=== PATIENT | male | born 1960 | race Caucasian/White ===

== ENCOUNTER 2017-07-15 08:10 | Emergency (ER) | payer OTHER ==
[~2017-07-15] VITALS: Ht 177.8 cm; Wt 85.0 kg
[2017-07-15 08:11] VITALS: Ht 177.8 cm; Wt 85.0 kg
[2017-07-15] MEDS ORDERED: METOCLOPRAMIDE HCL INJ 5 MG/ML 2 ML VIAL IV STA (08:22)
[2017-07-15] MEDS ORDERED: NITROGLYCERIN 2% OINTMENT 30GM TUBE EXT STA (08:22)
[2017-07-15] MEDS ORDERED: GLUCAGON INJ 1 MG in SYRINGE 0 ML IV STA (08:22)
[2017-07-15] MEDS ORDERED: DIAZEPAM INJ 5 MG/ML 2 ML CARP IV STA (08:22)
--- NOTE | 2017-07-15 08:24 | EMERGENCY ROOM VISIT NOTE ---
History Report prepared by Jes: Silvestre Maradiaga Under the Supervision of: Dr. Herrera Sandoval M.D. First contact with patient: 08:18 Chief Complaint: FOOD BOLUS Stated Complaint: FOOD CAUGHT IN THROAT Nursing Triage Summary: Patient states "Last night around 8 pm, I was eating a hot dog and part of it is stuck in my throat. It has happened before. It has happened a few times over the last year but I have not gotten check out. I am able to swallow some spit but not much." History of Present Illness The patient is a 57 year old male with a history of food boluses who presents to the Emergency Room with complaints of a persistent food bolus that started 12 hours ago. He states that he was eating last night and the food got stuck in his throat. The patient says that in the past, the food bolus would eventually go away, but this current food bolus will not go away. He adds that he thinks some of the food is getting past, but he is still regurgitating water and a bit of saliva. He denies any abdominal pain. The patient says that he had a colonoscopy in the past but it was in [place]. Source of History: patient Onset: 12 hours ago Position: throat Symptom Intensity: regurgitating water and saliva Quality: other (food bolus) Timing: other (persistent) Associated Symptoms: No abdominal pain Note: No other associated symptoms noted. Review of Systems See HPI for pertinent positives & negatives. A total of 10 systems reviewed and were otherwise negative. Past Medical & Surgical Medical Problems: (1) HTN (hypertension) (2) Problems with swallowing Family History Cancer Hypertension Social History Smoking Status: Former Smoker Drug Use: none Housing Status: lives with family Occupation Status: employed Current/Historical Medications Scheduled Atorvastatin (Lipitor), 10 MG PO DAILY Lisinopril (Lisinopril), 10 MG PO DAILY Allergies Coded Allergies: No Known Allergies (Unverified , 07/15/17) Physical Exam Vital Signs Date Time Temp Pulse Resp B/P (MAP) Pulse Ox O2 Delivery O2 Flow Rate FiO2 07/15/17 11:10 73 18 131/87 97 Room Air 07/15/17 10:18 73 18 133/79 95 Room Air 07/15/17 09:15 90 16 148/97 95 Room Air 07/15/17 08:50 80 07/15/17 08:29 94 Room Air 07/15/17 08:11 36.8 90 18 159/94 96 Room Air 07/15/17 08:11 96 Room Air 96 Physical Exam GENERAL: Awake, alert, well-appearing, in no acute distress HENT: Normocephalic, atraumatic. Oropharynx unremarkable. EYES: Normal conjunctiva. Sclera non-icteric. NECK: Supple. No nuchal rigidity. FROM. No JVD. RESPIRATORY: Clear to auscultation. CARDIAC: Regular rate, normal rhythm. Extremities warm and well perfused. Pulses equal. ABDOMEN: Soft, non-distended. No tenderness to palpation. No rebound or guarding. No masses. RECTAL: Deferred. MUSCULOSKELETAL: Chest examination reveals no tenderness. The back is symmetrical on inspection without obvious abnormality. There is no CVA tenderness to palpation. No joint edema. LOWER EXTREMITIES: Calves are equal size bilaterally and non-tender. No edema. No discoloration. NEURO: Normal sensorium. No sensory or motor deficits noted. SKIN: No rash or jaundice noted. Medical Decision & Procedures Medications Administered Medications (Trade) Dose Ordered Sig/Liz Route Start Time Stop Time Status Last Admin Dose Admin Nitroglycerin (Nitroglycerin 2% Oint) 1 inch NOW STAT EXT 07/15/17 08:22 07/15/17 08:25 DC 07/15/17 08:34 1 INCH Diazepam (Valium Inj) 10 mg NOW STAT IV 07/15/17 08:22 07/15/17 08:25 DC 07/15/17 08:34 10 MG Metoclopramide HCl (Reglan Inj) 10 mg NOW STAT IV 07/15/17 08:22 07/15/17 08:25 DC 07/15/17 08:34 10 MG Glucagon (Glucagon Inj) 1 mg NOW ONCE IV 07/15/17 09:00 07/15/17 09:01 DC 07/15/17 09:13 1 MG ED Course 0819: Past medical records reviewed. The patient was evaluated in room A12B. A complete history and physical examination was performed. 0822: Reglan Inj 10 mg IV, Valium Inj 10 mg IV, Nitroglycerin 2% Oint 1 inch EXT , Glucagon 1mg/Syringe 1 ml @ 0 mls/min IV. 0847: I discussed the patient with Gina Delgado GI. 0900: Glucagon Inj 1 mg IV. 1155: I reevaluated the patient and he is resting. I discussed the test results with him. He will go to the [facility], and he is agreeable with the plan. Medical Decision Differential diagnosis: Food bolus. This is a 57-year-old male who presents emergency department complaining of being unable to swallow his own saliva. An IV was established, the patient was given glucagon, Reglan, Valium. In addition the patient was also given Nitropaste. Repeat examination revealed patient to still be spitting out his own saliva. For this reason I did discuss the case with the on-call survey worker and the patient was taken to the endoscopy lab. Medication Reconcilliation Current Medication List: was personally reviewed by me Blood Pressure Screening Patient's blood pressure: Elevated blood pressure Blood pressure disposition: Elevated BP felt to be situational Consults Time Called: 08 Consulting Physician: Gina HAYES Returned Call: 0847 I discussed the patient with Gina HAYES. Impression Primary Impression: Impacted esophageal foreign body Additional Impression: Dysphagia Scribe Attestation The scribe's documentation has been prepared under my direction and personally reviewed by me in its entirety. I confirm that the note above accurately reflects all work, treatment, procedures, and medical decision making performed by me. Departure Information [facility]postion [facility] Patient Instructions My [facility] Problem Qualifiers Primary Impression: Impacted esophageal foreign body Encounter type: initial encounter Qualified Codes: T18.108A - Unspecified foreign body in esophagus causing other injury, initial encounter Additional Impression: Dysphagia Dysphagia type: unspecified Qualified Codes: R13.10 - Dysphagia, unspecified
[2017-07-15] MEDS ORDERED: GLUCAGON FOR INJ 1 MG VIAL IV ONE (09:00)
--- NOTE | 2017-07-15 09:04 | Gastrointestinal Consultation ---
Gastrointestinal Consultation Date of Consultation: Jul 15, 2017 Attending Physician: Jaime Consulting Physician: Khris Reason for Consultation: food bolus History of Present Illness Patient is a 57 year old male w/ history of HTN and dysphagia who presented to [facility] for inability to tolerate secretions x 12 hours after swallowing a hot dog w/ sensation of food sticking - GI was asked to evaluate the pt for a food bolus as pt was unable to pass despite valium, nitropaste and reglan. Pt was seen and evaluated, chart reviewed. Pt notes history of dysphagia w/ sensation of food sticking for quite some time. Always meats and dry carbohydrates. No issues with liquids. He has not had this evaluated in the past. Most times he can feel the food stick, but this empties spontaneously. He notes he has never had persistent symptoms like this before. Notes intentional weight loss w/ dietary changes and exercise regimen. No fever, chills, CP, SOB, wheezing. He is hypertensive, tachycardiac w/ pulse in 90s EGD: none Colonoscopy: WNL per pt Past Medical/Surgical History dysphagia, inability to tolerate secretions, vomiting, food bolus Past Medical History: HTN, dysphagia Past Surgical History: colonoscopy Family History Cancer Hypertension Social History Smoking Status: Former Smoker Drug Use: none Housing Status: lives with family Occupation Status: employed Allergies Coded Allergies: No Known Allergies (Unverified , 07/15/17) Review of Systems Constitutional: + weight loss, No fever, No chills, No weakness, No fatigue Respiratory: No cough, No shortness of breath, No dyspnea at rest Cardiac: No chest pain, No edema Abdomen: + vomiting, + dysphagia, + problem reported (inability to tolerate secretions), No pain, No nausea, No diarrhea, No constipation, No GI bleeding Skin: No rash, No itch, No bleeding, No jaundice Physical Exam Date Time Temp Pulse Resp B/P (MAP) Pulse Ox O2 Delivery O2 Flow Rate FiO2 07/15/17 08:50 80 07/15/17 08:29 94 Room Air 07/15/17 08:11 36.8 90 18 159/94 96 Room Air 07/15/17 08:11 96 Room Air 96 General Appearance: + mild distress Eyes: PERRL ENT: hearing grossly normal Neck: supple, trachea midline Respiratory/Chest: lungs clear, normal breath sounds, no accessory muscle use Cardiovascular: regular rate, rhythm, no gallop Abdomen: normal bowel sounds, non tender, soft, no organomegaly, no pulsatile mass Neurologic/Psych: alert, normal mood/affect, oriented x 3 Skin: normal color, no jaundice, warm/dry, no rash Impression Patient is a 57 year old male w/ history of HTN, dysphagia who presents in the ED for s/s of food bolus 12 hours after swallowing a hot dog, notes he felt the meat stick when he swallowed and symptoms have persisted since. Unable to pass w / reglan, valium and nitropaste. His respirations are even, unlabored w/o evidence of airway compromise. Plan NPO EGD for food bolus Attg add: I interviewed and examined pt, reviewed chart and labs. Pt with intermittent dysphagia to solids over the past year. He ate a hot dog last night, and has felt like it is lodged in the esophagus, with difficulty clearing his secretions. He received mult meds in ER, but at present, is unsure if food remains lodged in esophagus and he has not spat up saliva for several hours. He has GERD that is well controlled. He denies CP, cough. He is comfortable with clear lungs on exam. No crepitus. Possible food bolus - EGD today.
[2017-07-15] MEDS ORDERED: ATOR10TA82 PO (09:18)
[2017-07-15] MEDS ORDERED: LISI-461 PO (09:18)
[2017-07-15 11:10] VITALS: O2SAT 97
[2017-07-15] MEDS ORDERED: PROPOFOL IV EMULSION 10 MG/ML 20 ML VIAL IV ONE (11:48)
[2017-07-15] MEDS ORDERED: SUCCINYLCHOLINE CHLORIDE 20 MG/ML 10 ML VIAL IV ONE (11:49)
[2017-07-15] MEDS ORDERED: MIDAZOLAM HCL 1 MG/ML 2ML VIAL ONE (11:49)
[2017-07-15] MEDS ORDERED: FENTANYL CITRATE INJ 50 MCG/1 ML 2 ML VIAL ONE ×2 (11:50→13:03)
[2017-07-15] MEDS ORDERED: EpHEDrine SULFATE INJ 50 MG/ML AMP IV PRN (12:00)
[2017-07-15] MEDS ORDERED: ATROPINE SULFATE 0.1 MG/ML 5ML SYR IV PRN (12:00)
[2017-07-15] MEDS ORDERED: FENTANYL CITRATE INJ 50 MCG/1 ML 2 ML VIAL IV PRN (12:00)
--- NOTE | 2017-07-15 13:15 | GI REPORT ---
Procedure Date: 07/15/2017 11:41 AM Procedure: Upper GI endoscopy Indications: Foreign body in the esophagus Medicines: See the Anesthesia note for documentation of the administered medications Complications: No immediate complications. Estimated Blood Loss: Estimated blood loss: none. Procedure: Pre-Anesthesia Assessment: - ASA Grade Assessment: II - A patient with mild systemic disease. After obtaining informed consent, the endoscope was passed under direct vision. Throughout the procedure, the patient's blood pressure, pulse, and oxygen saturations were monitored continuously. The scope was introduced through the mouth, and advanced to the duodenal bulb. The upper GI endoscopy was accomplished without difficulty. The patient tolerated the procedure well. Findings: There were two large "kissing" inlet patches in the proximal esophagus, associated with a mild web. There was a circumferential ring 1 cm above the GE junction, likely corresponding to place where food was impacted. The Z line was at 38 cm and was irregular. There was no stigmata of eosinophilic esophagitis. There was patchy erythema in the antrum. The stomach was otherwise normal. There was no food in the stomach. The duodenum was normal. There no food in the esophagus. Impression: Inlet patch. Food impaction, resolved. Recommendation: - Discharge patient to home. Once daily PPI. Follow up with primary social media intern for f/u EGD, dilation, biopsy to r/o Eoe. Velia Pinedo M.D. Velia Pinedo MD 07/15/2017 1:14:54 PM This report has been signed electronically. Note Initiated On: 07/15/2017 11:41 AM I attest to the content of the Intraoperative Record and orders documented therein, exceptions below
--- NOTE | 2017-07-15 13:32 | Discharge Instructions ---
Endoscopy Patient Instructions Date / Procedure(s) Performed Jul 15, 2017. EGD Allergy Information Coded Allergies: No Known Allergies (Unverified , 07/15/17) Discharge Date / Findings Jul 15, 2017. Resolved food impaction, ring Provider Instructions Activity Restrictions - No exercising or heavy lifting for 24 hours. - Do not drink alcohol the day of the procedure. - Do not drive a car or operate machinery until the day after the procedure. - Do not make any important decisions or sign important papers in 24 hours after the procedure. Following Day: - Return to full activity which may include returning to work/school. Diet Start your diet with liquids and light foods (jello, soup, juice, toast). Then eat your usual diet if not nauseated. Treatment For Common After Affects For mild abdominal pain, bloating, or excessive gas: - Rest - Eat lightly - Lie on right side Follow-Up Information Follow-up with as scheduled Anesthesia Information What You Should Know You have had a procedure that required some medicine to reduce anxiety and discomfort. This treatment is called moderate sedation. After receiving the treatment, you may be sleepy, but you will be able to breathe on your own. The effects of the treatment may last for several hours. Follow these instructions along with Activity/Diet recommendations noted above: * Do NOT do anything where dizziness or clumsiness would be dangerous. * Rest quietly at home today, then you can be up and about tomorrow. * Have a responsible person stay with you the rest of today. * You may have had an I.V. today. If so, you may take the dressing off later today. Recommendations Call your doctor if: * Trouble breathing * Continuous vomiting for more than 24 hours * Temperature above 101 degrees * Severe abdominal pain or bloating * Pain not relieved by pain medicine ordered * There is increased drainage or redness from any incision * A large amount of rectal bleeding greater than 2-3 tablespoons. (If you had a polyp/s removed or have hemorrhoids, a small amount of blood - from the rectum is to be expected.) * You have any unanswered questions or concerns. IN THE EVENT OF A SERIOUS EMERGENCY, GO TO THE NEAREST EMERGENCY ROOM Your discharge instructions were prepared by provider Velia Wilkinson. Patient Instructions Signature Page Jesse Morel Patient (or Guardian) Signature/Date: I have read and understand the instructions given to me by my caregivers. Caregiver/RN/Doctor Signature/Date: The above-named patient and/or guardian has received patient instructions on this date. + Original Patient Signature Page (only) stays with chart. Please make copy for patient.
--- NOTE | 2017-07-15 13:39 | Anesthesiology Progress Note ---
Anesthesia Post Op Note Date & Time Jul 15, 2017 at 13:38 Vital Signs Pain Intensity: 0 Vital Signs Past 12 Hours Date Time Temp Pulse Resp B/P (MAP) Pulse Ox O2 Delivery O2 Flow Rate FiO2 07/15/17 11:10 73 18 131/87 97 Room Air 07/15/17 10:18 73 18 133/79 95 Room Air 07/15/17 09:15 90 16 148/97 95 Room Air 07/15/17 08:50 80 07/15/17 08:29 94 Room Air 07/15/17 08:11 36.8 90 18 159/94 96 Room Air 07/15/17 08:11 96 Room Air 96 Notes Mental Status: alert / awake / arousable, participated in evaluation Pt Amnestic to Procedure: Yes Nausea / Vomiting: adequately controlled Pain: adequately controlled Airway Patency, RR, SpO2: stable & adequate BP & HR: stable & adequate Hydration State: stable & adequate Anesthetic Complications: no major complications apparent
[2017-07-15 14:20] VITALS: BP 135/91; PULSE 67; TEMP 36.7; O2SAT 93
[2017-07-15 14:50] VITALS: BP 146/89; PULSE 67; TEMP 36.7; O2SAT 95
== END 2017-07-15 11:20 | disposition home or self-care (01) ==
LOC: C.EDB 08:12 → C.EDA 11:20
DX: T18.128A Food in esophagus causing other injury, initial encounter (principal); R13.10 Dysphagia, unspecified; X58.XXXA Exposure to other specified factors, initial encounter; I10 Essential (primary) hypertension; Z87.891 Personal history of nicotine dependence; Z80.9 Family history of malignant neoplasm, unspecified; Z82.49 Family history of ischemic heart disease and other diseases of the circulatory system